=== PATIENT | female | born 1970 | race African-American/Black ===

== ENCOUNTER 2016-10-08 15:55 | Outpatient (CLI) | payer BC ==
[2016-10-08 16:25] LABS: Prothrombin Time 35.9 SEC (12.0-14.7)
== END 2016-10-08 15:56 | disposition home or self-care (01) ==
LOC: NAV LAB 15:55
PROVIDERS: ATTEND Nurse Practitioner
DX: I82.403 Acute embolism and thrombosis of unspecified deep veins of lower extremity, bilateral (principal)
CPT/HCPCS: 36415; 85610

== ENCOUNTER 2016-11-11 18:07 | Outpatient (CLI) | payer BC ==
[2016-11-11 19:55] LABS: Prothrombin Time 25.6 SEC (12.0-14.7)
== END 2016-11-11 18:08 | disposition home or self-care (01) ==
LOC: NAV LAB 18:07
PROVIDERS: ATTEND Nurse Practitioner
DX: I82.409 Acute embolism and thrombosis of unspecified deep veins of unspecified lower extremity (principal)
CPT/HCPCS: 85610

== ENCOUNTER 2016-12-16 16:08 | Outpatient (CLI) | payer BC ==
[2016-12-16 16:34] LABS: Prothrombin Time 23.6 SEC (12.0-14.7)
== END 2016-12-16 16:09 | disposition home or self-care (01) ==
LOC: NAV LAB 16:08
PROVIDERS: ATTEND Nurse Practitioner
DX: I82.409 Acute embolism and thrombosis of unspecified deep veins of unspecified lower extremity (principal)
CPT/HCPCS: 36415; 85610

== ENCOUNTER 2017-01-13 18:24 | Outpatient (CLI) | payer BC ==
[2017-01-13 19:26] LABS: INR-International Normal Ratio 1.8; Prothrombin Time 21.6 SEC (12.0-14.7)
== END 2017-01-13 18:25 | disposition home or self-care (01) ==
LOC: NAV LAB 18:24
PROVIDERS: ATTEND Nurse Practitioner
DX: I82.403 Acute embolism and thrombosis of unspecified deep veins of lower extremity, bilateral (principal)
CPT/HCPCS: 36415; 85610

== ENCOUNTER 2017-02-10 16:08 | Outpatient (CLI) | payer BC ==
[2017-02-10 16:34] LABS: INR-International Normal Ratio 1.5; Prothrombin Time 18.3 SEC (12.0-14.7)
== END 2017-02-10 16:09 | disposition home or self-care (01) ==
LOC: NAV LAB 16:08
PROVIDERS: ATTEND Nurse Practitioner
DX: I82.403 Acute embolism and thrombosis of unspecified deep veins of lower extremity, bilateral (principal)
CPT/HCPCS: 36415; 85610

== ENCOUNTER 2017-03-15 18:02 | Outpatient (CLI) | payer BC ==
[2017-03-15 18:40] LABS: INR-International Normal Ratio 1.8
== END 2017-03-15 18:03 | disposition home or self-care (01) ==
LOC: NAV LAB 18:02
PROVIDERS: ATTEND Nurse Practitioner
DX: I82.403 Acute embolism and thrombosis of unspecified deep veins of lower extremity, bilateral (principal)
CPT/HCPCS: 36415; 85610

== ENCOUNTER 2017-04-06 15:58 | Outpatient (CLI) | payer BC ==
[2017-04-06 17:07] LABS: INR-International Normal Ratio 2.3; Prothrombin Time 25.7 SEC (12.0-14.7)
== END 2017-04-06 15:59 | disposition home or self-care (01) ==
LOC: NAV LAB 15:58
PROVIDERS: ATTEND Nurse Practitioner
DX: I82.403 Acute embolism and thrombosis of unspecified deep veins of lower extremity, bilateral (principal)
CPT/HCPCS: 36415; 85610

== ENCOUNTER 2017-05-05 18:03 | Outpatient (CLI) | payer BC ==
[2017-05-05 18:48] LABS: INR-International Normal Ratio 2.2; Prothrombin Time 24.8 SEC (12.0-14.7)
== END 2017-05-05 18:04 | disposition home or self-care (01) ==
LOC: NAV LAB 18:03
PROVIDERS: ATTEND Nurse Practitioner
DX: I82.409 Acute embolism and thrombosis of unspecified deep veins of unspecified lower extremity (principal)
CPT/HCPCS: 36415; 85610